=== PATIENT | female | born 2000 | race Caucasian/White ===

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

== ENCOUNTER → 2020-05-07 | Outpatient (CLI) | payer OTHER | END | disposition home or self-care (01) | LOC: LAB SHORT 18:49 → LAB EV 18:49 | DX: R30.9 Painful micturition, unspecified (principal) | CPT/HCPCS: 87086 ==

== ENCOUNTER 2022-09-18 10:20 | Emergency (ER) | payer OTHER ==
[~2022-09-18] VITALS: Ht 167.6 cm; Wt 55.8 kg
[2022-09-18] MEDS ORDERED: PRENATAL TABLE1 EAC9 PO (11:12)
== END 2022-09-18 12:26 | disposition home or self-care (01) ==
LOC: ER 10:20
DX: O9A.312 Physical abuse complicating pregnancy, second trimester (principal); Z3A.16 16 weeks gestation of pregnancy
CPT/HCPCS: 76815; 96361; 96374-59; 96375; 99285-25

== ENCOUNTER → 2023-02-10 | Outpatient (CLI) | payer OTHER ==
[~2023-02-10] MED LIST changes: +PRENATAL TABLE1 EAC9 PO
== END | disposition home or self-care (01) ==
LOC: LAB SHORT 13:22 → LAB 13:22
DX: Z34.03 Encounter for supervision of normal first pregnancy, third trimester (principal)
CPT/HCPCS: 87081; 87150

== ENCOUNTER 2023-03-04 07:36 | Inpatient (IN) | payer OTHER ==
[2023-03-04] VITALS (21 sets, daily range): BP systolic 95–145; BP diastolic 53–92
[~2023-03-04] VITALS: Ht 165.1 cm; Wt 65.0 kg
[2023-03-04 08:29] LABS: BASOPHILS ABSOLUTE AUTO 0.03 K/mm3 (0.00-0.23); BASOPHILS PERCENT AUTO 0 % (0-2); EOSINOPHILS ABSOLUTE AUTO 0.12 K/mm3 (0.00-0.68); EOSINOPHILS PERCENT AUTO 1 % (0-6); Hematocrit 38.5 % (33.0-51.0); Hemoglobin 13.2 g/dL (11.5-16.0); IMMATURE GRAN ABSOLUTE AUTO 0.17 K/mm3 (0.00-0.10); IMMATURE GRAN PERCENT AUTO 1 % (0-1); LYMPHOCYTES ABSOLUTE AUTO 2.91 K/mm3 (0.84-5.20); LYMPHOCYTES PERCENT AUTO 18 % (21-46); MONOCYTES ABSOLUTE AUTO 1.18 K/mm3 (0.16-1.47); MONOCYTES PERCENT AUTO 7 % (4-13); Mean Corpuscular HGB Conc 34.3 g/dL (31.5-36.5); Mean Corpuscular Volume 93 fL (80-100); NEUTROPHILS ABSOLUTE AUTO 11.56 K/mm3 (1.96-9.15); NEUTROPHILS PERCENT AUTO 72 % (41-73); Platelet Count 334 K/mm3 (150-400); RDW Coefficient Variation 12.7 % (11.7-14.2); RDW Standard Deviation 43.4 fL (35.1-46.3); Red Blood Cell Count 4.12 M/mm3 (3.80-5.20); White Blood Cell Count 15.97 K/mm3 (4.00-11.30)
--- NOTE | 2023-03-04 18:50 | NUR ---
pt refused bp check from [id number], took bp cuff off herself to breastfeed nb
[2023-03-05 04:57] VITALS: BP 96/53
[2023-03-05 07:55] VITALS: BP 101/59
[2023-03-05 11:30] VITALS: BP 107/63
--- NOTE | 2023-03-05 11:37 | NUR ---
PT STATES SHE HAS BACK PAIN AND WOULD LIKE MEDICATION. RATES PAIN 4/10. PT ALSO STATED SHE WOULD LIKE MORE STOOL SOFTENER. RELAYED INFORMATION TO NURSE. VITAL SIGNS TAKEN.
--- NOTE | 2023-03-05 15:00 | NUR ---
1500: D/C HOME WITH BABY
== END 2023-03-05 15:03 | disposition home or self-care (01) | DRG 806 ==
LOC: OBS 07:36 → BC 07:41 → OBS 07:45 → BC 07:46
PROVIDERS: ADMIT Advanced Practice Midwife
PROC: 10E0XZZ Delivery of Products of Conception, External Approach (ICD-10-PCS; principal; 2023-03-04)
PROC: 0KQM0ZZ Repair Perineum Muscle, Open Approach (ICD-10-PCS; 2023-03-04)
PROC: 3E0R3BZ Introduction of Anesthetic Agent into Spinal Canal, Percutaneous Approach (ICD-10-PCS; 2023-03-04)
PROC: 00HU33Z Insertion of Infusion Device into Spinal Canal, Percutaneous Approach (ICD-10-PCS; 2023-03-04)
DX: O99.344 Other mental disorders complicating childbirth (principal); O44.23 Partial placenta previa NOS or without hemorrhage, third trimester; Z37.0 Single live birth; F41.8 Other specified anxiety disorders; Z3A.39 39 weeks gestation of pregnancy; O69.1XX0 Labor and delivery complicated by cord around neck, with compression, not applicable or unspecified; O70.1 Second degree perineal laceration during delivery; O77.0 Labor and delivery complicated by meconium in amniotic fluid
CPT/HCPCS: 36415; 51702; 85025; 86850; 86900; 86901; A9270; J1885; J2405; J2590; J7120

== ENCOUNTER → 2024-03-02 | Outpatient (CLI) | payer OTHER ==
[2024-03-03 00:34] LABS: Bacterial Vaginosis PCR Negative (NEGATIVE); Candida glabrata-krusei, PCR NOT DETECTED (NOT DETECT)
[2024-03-03 01:08] LABS: Candida Group, PCR DETECTED (NOT DETECT)
== END ==
LOC: LAB SHORT 15:32 → LAB 15:32
PROVIDERS: Advanced Practice Midwife
DX: N76.0 Acute vaginitis (principal)
CPT/HCPCS: 87481; 87661; 87801